=== PATIENT | male | born 1960 | race Caucasian/White ===

== ENCOUNTER 2023-11-07 15:17 | Emergency (ER) | payer MEDICAID, SELFPAY ==
[2023-11-07 15:18] VITALS: BP 140/96; PULSE 90; RESP 18; TEMP 36.4; O2SAT 99
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
--- NOTE | 2023-11-07 15:30 | RAD_ITS ---
INDICATION: chest pain EXAMINATION/TECHNIQUE: X-RAY - XR Chest 1 View COMPARISON: FINDINGS: LINES/DEVICES: None. LUNGS: Possible mild right basilar infiltrate. No pneumothorax. MEDIASTINUM AND CARDIOVASCULAR STRUCTURES: Cardiac silhouette not enlarged. Central airways and mediastinal contour are unremarkable. BONES AND SOFT TISSUES: Degenerative vertebral changes. Mild compression of lower thoracic vertebral segments. RAD/Chest 1 View (Portable) IMPRESSION: Possible mild right basilar infiltrate. Electronically Signed: oJsé San DO at 16:49 EDT ,
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
[2023-11-07] MEDS: oxyCODONE 5 MG Tablet PO (16:42)
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
== END 2023-11-07 17:44 | disposition home or self-care (01) ==
PROVIDERS: Emergency Provider Emergency Medicine; Visit Provider Emergency Medicine
DX: S46.911A Strain of unspecified muscle, fascia and tendon at shoulder and upper arm level, right arm, initial encounter (principal); S20.211A Contusion of right front wall of thorax, initial encounter; S50.01XA Contusion of right elbow, initial encounter; F17.210 Nicotine dependence, cigarettes, uncomplicated; V44.5XXA Car driver injured in collision with heavy transport vehicle or bus in traffic accident, initial encounter
CPT/HCPCS: 71045; 71100; 73030; 73070; 73090; 99283